=== PATIENT | male | born 1980 | race African-American/Black ===

== ENCOUNTER 2018-06-14 11:13 | Emergency (ER) | payer OTHER ==
[2018-06-14 11:24] VITALS: TEMP 98; BMI 22.6
--- NOTE | 2018-06-14 11:58 | PDOC ---
History of Present Illness - General Chief Complaint: Chest Pain Stated Complaint: BP PROBLEM/CHEST PAIN Time Seen by Provider: 06/14/18 11:41 History Source: Patient Exam Limitations: No Limitations - History of Present Illness Initial Comments: 37 yo M w a hx of HTN presents to the ER with one week of stabbing pressure like Right sided chest pain with radiation to his back. The pain started last wednesday, has stayed the same, not worsened or gotten better. He came to the ED today because this morning he began to experience a headache and blurry vision. He states the chest pain is worse with physical exertion and made better by rest. He denies any weakness, numbness, tingling or chills. Denies recent fevers, chills, or infections. Denies abdominal pain or leg pain. He denies any shortness of breath or difficulty breathing. PCP: Rajendra Cornelius Allergies: NKA, NKDA Social hx: Denies smoking, drinking or illicit drug usage Psh: None Past History - Past Medical History Allergies/Adverse Reactions: Allergies Allergy/AdvReac Type Severity Reaction Status Date / Time No Known Allergies Allergy Verified 06/14/18 11:19 COPD: No HTN: Yes - Immunization History Immunization Up to Date: Yes - Suicide/Smoking/Psychosocial Hx Smoking History: Never smoked Hx Alcohol Use: No Drug/Substance Use Hx: No Review of Systems - Review of Systems Able to Perform ROS?: Yes Comments:: CONSTITUTIONAL: Absent: fever, no chills, no fatigue EYES: Absent: visual changes ENT: Absent: ear pain, no sore throat CARDIOVASCULAR: Present: Chest pain Absent: no palpitations RESPIRATORY: Absent: cough, no SOB GI: Absent: abdominal pain, no nausea, no vomiting, no constipation, no diarrhea GENITOURINARY: Absent: dysuria, no frequency, no hematuria MUSKULOSKELETAL: Present: Back pain Absent: no arthralgia, no myalgia SKIN: Absent: rash NEURO: Present: Headache, blurry vision. *Physical Exam - Vital Signs Last Vital Signs Temp Pulse Resp BP Pulse Ox 98.0 F 75 18 137/106 H 100 06/14/18 11:20 06/14/18 11:20 06/14/18 11:20 06/14/18 11:20 06/14/18 11:20 - Physical Exam Comments: Left Arm BP: 142/100 Right Arm BP: 135/99 GENERAL: Well-appearing, well-nourished. No apparent distress. HEENT: Normocephalic, atraumatic. PERRL, EOM intact. CARDIOVASCULAR: Normal S1, S2. Regular rate and rhythm. PULMONARY: Clear to auscultation bilaterally. ABDOMEN: Soft, non-distended, non-tender. EXTREMITIES: Normal ROM in all four extremities. No gross deformities. SKIN: Warm, dry. No rash NEUROLOGICAL: No focal neurological deficits. Moderate Sedation - Procedure Monitoring Vital Signs: Procedure Monitoring Vital Signs Temperature 98.0 F 06/14/18 11:20 Pulse Rate 75 06/14/18 11:20 Respiratory Rate 18 06/14/18 11:20 Blood Pressure 137/106 H 06/14/18 11:20 O2 Sat by Pulse Oximetry (%) 100 06/14/18 11:20 ED Treatment Course - LABORATORY CBC & Chemistry Diagram: 06/14/18 12:10 06/14/18 12:10 - ADDITIONAL ORDERS Additional order review: Laboratory Results 06/14/18 12:10 Sodium 139 Potassium 3.5 Chloride 102 Carbon Dioxide 26 Anion Gap 11 BUN 10 Creatinine 1.1 Creat Clearance w eGFR > 60 Random Glucose 82 Calcium 9.3 Total Bilirubin 1.5 H AST 30 ALT 48 Alkaline Phosphatase 59 Troponin I < 0.02 Total Protein 7.9 Albumin 4.5 06/14/18 12:10 RBC 5.76 H MCV 80.5 MCHC 33.5 RDW 14.9 MPV 8.7 Neutrophils % 39.9 L Lymphocytes % 46.2 H Monocytes % 11.0 H Eosinophils % 2.1 Basophils % 0.8 - RADIOLOGY Radiology Studies Ordered: Category Date Time Status CHEST CTA [CT] Stat CT Scan 06/14/18 11:53 Completed CHEST PA & LAT [RAD] Stat Radiology 06/14/18 11:52 Ordered Medical Decision Making - Medical Decision Making 37 yo M w a hx of HTN presents to the ER with one week of stabbing pressure like Right sided chest pain with radiation to his back. DD includes but not limited to: MSK pain, ACS, dissection, pneumothorax, PNA, phyllis/kellee/endocarditis, PE, costochondritis. Plan: Cbc, Cmp, Trop, Ekg, CXR, CTA, re-assess. Labs and imaging unremarkable. EKG - normal sinus trop negative. Will give patient toradol for analgesic relief and DC w PCP fu. *DC/Admit/Observation/Transfer Diagnosis at time of Disposition: Chest pain - Discharge Dispostion Disposition: HOME Condition at time of disposition: Stable Decision to Admit order: No - Referrals Referrals: [facility] [place] [Provider Group] - Patient Instructions Printed Discharge Instructions: DI for Atypical Chest Pain, DI for Musculoskeletal Pain Additional Instructions: You came into the ER with chest pain. We did some tests and determined you are not having a heart attack, are not having an aortic dissection, and do not have an infection in your lungs. We believe your chest pain is musculoskeletal in nature. Please see attached handout for further instructions. Take motrin/ ibuprofen/advil for pain relief as needed. Drink lots of fluids. Please make sure to schedule a follow up appointment with your PCP in the next 3 to 5 days to make sure your pain is under control and getting better. Come back to the ER immediately if your pain worsens, you develop a high fever, start vomiting, or have any other new or worsening concerns. Thank you for coming to the [facility] ER. We hope you feel better soon! Print Language: BRITISH - Post Discharge Activity
[2018-06-14 12:22] LABS: BASO % 0.8 % (0-2.0); EOS % 2.1 % (0-4.5); HEMATOCRIT 46.3 % (35.4-49); HEMOGLOBIN 15.5 GM/dL (11.7-16.9); LYMPH % 46.2 % (8-40); MCH 26.9 pg (25.7-33.7); MCHC 33.5 g/dl (32.0-35.9); MEAN CELL VOLUME 80.5 fl (80-96); MEAN PLT VOLUME 8.7 fl (7.5-11.1); NEUT % 39.9 % (42.8-82.8); PLATELET COUNT 264 K/MM3 (134-434); RBC 5.76 M/mm3 (4.00-5.60); RDW 14.9 % (11.9-15.9); WHITE BLOOD COUNT 4.8 K/mm3 (4.0-10.0)
[2018-06-14 12:48] LABS: ALBUMIN 4.5 g/dl (3.4-5.0); ALK PHOS 59 U/L (45-117); ANION GAP 11 MMOL/L (8-16); BILIRUBIN,TOTAL 1.5 mg/dL (0.2-1); BLOOD UREA NITROGEN 10 mg/dL (7-18); CALCIUM 9.3 mg/dL (8.5-10.1); CHLORIDE 102 mmol/L (98-107); CO2 26 mmol/L (21-32); CREATININE 1.1 mg/dL (0.55-1.3); GLUCOSE,RANDOM 82 mg/dL (74-106); POTASSIUM 3.5 mmol/L (3.5-5.1); SGOT/AST 30 U/L (15-37); SGPT/ALT 48 U/L (13-61); SODIUM 139 mmol/L (136-145); TOT PROT 7.9 g/dl (6.4-8.2)
--- NOTE | 2018-06-14 13:27 | PDOC ---
Attending Attestation - Resident Resident Name: Abdelrahman Auguste - ED Attending Attestation I have performed the following: I have examined & evaluated the patient, The case was reviewed & discussed with the resident, I agree w/resident's findings & plan - HPI HPI: 06/14/18 13:22 37-year-old male with history of hypertension presents with 1 week of substernal chest pain, initially intermittent and now constant. Slightly worse with ambulation, not positional, not pleuritic, not associated with fever/chills /cough. Seen by PCP and referred to cardiology yesterday, had EKG in the office which was unremarkable and was referred for stress testing on 06/30. This morning, patient developed some lightheadedness and blurry vision, blood pressure at that time was 136 systolic, so he presents for evaluation. No history of exertional chest pain or shortness of breath except over the last few days, no recent travel or sick contacts, no leg swelling. - Physicial Exam PE: 06/14/18 13:23 Blood pressure 130/95 vital signs otherwise normal Well-appearing, comfortable and conversant speaking full sentences Heart is regular without appreciable murmur or rub Lungs are clear with symmetric chest rise Equal pulses, no leg swelling or edema, no calf tenderness Neurologically intact - Medical Decision Making 06/14/18 13:24 37-year-old male with history of hypertension presents with 1 week of atypical chest pain, slightly elevated blood pressures. Seen by cardiology yesterday, presents here for episode of lightheadedness this morning. Atypical for ACS, rule out pericarditis/myocarditis, low clinical suspicion for dissection but does have red flags of elevated blood pressure and neurological symptoms. Labs EKG with early repol v ? pericarditis elevations bedside echo for effusion CT chest Reassess, has cardiology follow-up established Heart Score/ECG Review - History History: Slightly suspicious - Electrocardiogram EKG: Non specific repolarization disturbance - Age Age: </= 45 - Risk Factors Based on the list above the patient has:: 1-2 risk factors - Troponin Troponin: </= normal limit - Score Heart Score - Total: 2 #1 ECG reviewed & interpreted by me at: 11:20 General ECG Interpretation: Sinus Rhythm, Normal Rate (64), Normal Intervals ( qtc 371, LVH), No acute ischemic changes (early repol abnormality, ? pericarditis) Compared to previous ECG there are: Previous ECG unavail
[2018-06-14] MEDS ORDERED: KETOROLAC TROMETHAMINE 30 MG/1 ML VIAL IVPUSH ONE (14:33)
[2018-06-14] MEDS ORDERED: KETOROLAC TROMETHAMINE 30 MG/1 ML VIAL ONE (15:02)
[2018-06-14 15:19] VITALS: BP 142/98; PULSE 78
--- NOTE | 2018-06-15 13:03 | EKG ---
Test Reason : Blood Pressure : / mmHG Vent. Rate : 064 BPM Atrial Rate : 064 BPM P-R Int : 146 ms QRS Dur : 078 ms QT Int : 360 ms P-R-T Axes : 014 002 016 degrees QTc Int : 371 ms NORMAL SINUS RHYTHM MODERATE VOLTAGE CRITERIA FOR LVH, MAY BE NORMAL VARIANT ST ELEVATION, CONSIDER EARLY REPOLARIZATION BORDERLINE ECG NO PREVIOUS ECGS AVAILABLE Confirmed by FAY ASHLEY MD ([id number]) on 06/15/2018 1:03:10 PM Referred By: Confirmed By:FAY ASHLEY MD
== END 2018-06-14 15:19 | disposition home or self-care (01) ==
LOC: JER 11:13
PROC: 3E0233Z Introduction of Anti-inflammatory into Muscle, Percutaneous Approach (ICD-10-PCS; principal; 2018-06-14)
DX: R07.9 Chest pain, unspecified (principal)
CPT/HCPCS: 36415; 71275-TC; 74175-TC; 80053; 84484; 85025; 93005; 93010; 99282-25

== ENCOUNTER 2019-08-16 11:05 | Emergency (ER) | payer OTHER ==
[2019-08-16 11:29] VITALS: BP 137/99; PULSE 99; TEMP 98.5; BMI 19.5
--- NOTE | 2019-08-16 11:55 | PDOC ---
History of Present Illness - General Chief Complaint: Cold Symptoms Stated Complaint: COLD SYMPTOMS Time Seen by Provider: 08/16/19 11:35 History Source: Patient Exam Limitations: No Limitations - History of Present Illness Initial Comments: 08/16/19 11:52 Patient is a 39-year-old male who presents to the ED with complaint of cough, subjective fevers and pain in his chest while coughing since yesterday. He denies any nausea or vomiting. He denies any sputum production. He denies any other URI symptoms. He denies any past medical history and denies allergies to medications. Past History - Past Medical History Allergies/Adverse Reactions: Allergies Allergy/AdvReac Type Severity Reaction Status Date / Time No Known Allergies Allergy Verified 08/16/19 11:27 Home Medications: Ambulatory Orders Benzonatate [Tessalon Pearls -] 100 mg PO TID PRN #21 capsule 08/16/19 COPD: No HTN: Yes - Immunization History Immunization Up to Date: Yes - Psycho Social/Smoking Cessation Hx Smoking History: Never smoked Hx Alcohol Use: No Drug/Substance Use Hx: No Review of Systems - Review of Systems Comments:: 08/16/19 11:52 - Review of Systems Able to Perform ROS?: Yes Constitutional: No: Fever, Chills, Loss of Appetite, Night Sweats, Weakness HEENTM: No: Eye Pain, Vision changes, Ear Pain, Throat Pain, Throat Swelling, Mouth Pain, Difficulty Swallowing Respiratory: No: Shortness of Breath, Wheezing, Sputum Production, Positive: Cough Cardiac (ROS): No: Chest Pain, Chest Tightness, Palpitations, Irregular Heart Beat, Edema; + chest wall pain with cough ABD/GI: No: Nausea, Vomiting, Abdominal Pain, Diarrhea Musculoskeletal: No: Muscle Pain, Back Pain, Joint Pain, Muscle Weakness, Neck Pain Integumentary: No: Lesions, Rash Neurological: No: Headache, Numbness, Tingling, Weakness, Speech Difficulties 08/16/19 11:54 *Physical Exam - Vital Signs Last Vital Signs Temp Pulse Resp BP Pulse Ox 98.5 F 99 H 18 137/99 99 08/16/19 11:27 08/16/19 11:27 08/16/19 11:27 08/16/19 11:27 08/16/19 11:27 - Physical Exam 08/16/19 11:53 - Physical Exam General Appearance: Nourished, Appropriately Dressed, No Distress HEENT: EOMI, Normal Voice, No Pharyngeal Erythema, No Muffled/Hoarse voice, No Tonsillar Exudate, No Tonsillar Erythema, No Nasal Congestion, No Rhinorrhea, Hearing Grossly Normal, TMs Normal, No TM Bulging, No TM Dullness, No TM Erythema Neck: Supple, No Lymphadenopathy (R), No Lymphadenopathy (L), No Rigidity, No Decreased range of motion Respiratory/Chest: Lungs Clear, Normal Breath Sounds. No Respiratory Distress, No Accessory Muscle Use; Good air entry bilaterally without adventitious lung sounds. No cough appreciated. No reproducible chest wall pain. Cardiovascular: Regular Rhythm, Regular Rate, S1, S2 Gastrointestinal/Abdominal: Normal Bowel Sounds, Soft. Non-tender, No Guarding , No Rebound, No Rigidity Musculoskeletal: Normal Inspection. No Decreased Range of Motion Extremity: Normal Capillary Refill, Normal Inspection Integumentary: Normal Color, Dry. No Rash Neurologic: hot braider II-XII NML intact, Fully Oriented, Alert, Normal Mood/Affect, Normal Response ED Treatment Course - RADIOLOGY Radiology Studies Ordered: Category Date Time Status CHEST PA & LAT [RAD] Stat Radiology 08/16/19 11:51 Ordered Medical Decision Making - Medical Decision Making 08/16/19 11:54 Assessment: Patient is a 39-year-old male with cough, chest wall pain and subjective fevers Plan: -Chest x-ray ordered -We will reassess 08/16/19 12:55 The patient has been made aware that his chest x-ray is negative for acute pathology. His chest wall pain is likely secondary to his cough. He can take Tylenol and Motrin for his pain. He should follow-up with his primary care doctor within 1 to 2 days for repeat evaluation. Discharge - Discharge Information Problems reviewed: Yes Clinical Impression/Diagnosis: Cough, Chest wall pain Condition: Stable Disposition: HOME - Additional Discharge Information Prescriptions: Benzonatate [Tessalon Pearls -] 100 mg PO TID PRN #21 capsule PRN Reason: Cough - Follow up/Referral Referrals: Augustus Raygoza MD [Staff Physician] - (Make an appointment for further eval at your earliest convenience. ) - Patient Discharge Instructions Patient Printed Discharge Instructions: DI for Cough -- Adult Additional Instructions: Follow-up with your primary doctor within 1 to 2 days for repeat evaluation. Get plenty of rest and drink plenty of fluids. Take Tessalon Perles as needed for cough. You may need to follow-up with a GI doctor for your acid reflux and the name has been given to you as per your request. - Post Discharge Activity Work/Back to School Note: Back to Work
== END 2019-08-16 13:09 | disposition home or self-care (01) ==
LOC: JERFT 11:05
DX: R07.89 Other chest pain (principal); R05 Cough; I10 Essential (primary) hypertension
CPT/HCPCS: 71046-TC-FY; 99281-25

== ENCOUNTER 2021-05-26 10:40 | Emergency (ER) | payer OTHER ==
[2021-05-26 11:20] VITALS: BP 140/92; PULSE 83; TEMP 98.2; BMI 23.2
[2021-05-26] MEDS ORDERED: ACETAMINOPHEN 1000 MG/100 ML VIAL IVPB ONE (12:03)
[2021-05-26] MEDS ORDERED: SODIUM CHLORIDE 1,000 ML IV STA (12:03)
[2021-05-26] MEDS ORDERED: METOCLOPRAMIDE HCL INJECTION 10 MG/2 ML VIAL IVPB ONE (12:03)
[2021-05-26] MEDS ORDERED: METOCLOPRAMIDE HCL INJECTION 10 MG/2 ML VIAL ONE (12:16)
[2021-05-26] MEDS ORDERED: ACETAMINOPHEN INJECTION 100 ML IVPB ONE (12:19)
[2021-05-26 12:41] LABS: BASO % 0.5 % (0-2.0); EOS % 0.3 % (0-4.5); HEMATOCRIT 44.3 % (35.4-49); HEMOGLOBIN 14.7 GM/dL (11.7-16.9); LYMPH % 13.6 % (8-40); MCH 26.8 pg (25.7-33.7); MCHC 33.2 g/dl (32.0-35.9); MEAN CELL VOLUME 80.7 fl (80-96); MEAN PLT VOLUME 8.3 fl (7.5-11.1); MONO % 6.9 % (3.8-10.2); NEUT % 78.7 % (42.8-82.8); PLATELET COUNT 266 10^3/uL (134-434); RBC 5.49 M/mm3 (4.00-5.60); RDW 14.7 % (11.9-15.9); WHITE BLOOD COUNT 7.7 K/mm3 (4.0-10.0)
[2021-05-26 12:55] LABS: CALCIUM 9.7 mg/dL (8.5-10.1)
[2021-05-26 12:56] LABS: ALBUMIN 4.4 g/dl (3.4-5.0); BLOOD UREA NITROGEN 12.4 mg/dL (7-18)
[2021-05-26 12:59] LABS: CREATININE 0.9 mg/dL (0.55-1.3)
[2021-05-26 13:30] LABS: ERYTHROCYTE SEDIMENTATION RATE 5 mm/hr (0-10)
== END 2021-05-26 14:45 | disposition home or self-care (01) ==
LOC: JERFT 10:40 → JER 10:40 → JERFT 14:45
PROC: 3E033GC Introduction of Other Therapeutic Substance into Peripheral Vein, Percutaneous Approach (ICD-10-PCS; principal; 2021-05-26)
DX: R51.9 Headache, unspecified (principal)
CPT/HCPCS: 36415; 80053; 85025; 85651; 86140; 86618; 99284-25; J0131